=== PATIENT | male | born 1975 | race Caucasian/White ===

== ENCOUNTER 2020-06-14 10:15 | Emergency (ER) | payer BC, OTHER ==
[~2020-06-14] VITALS: Ht 177 cm; Wt 79.0 kg
[2020-06-14] MEDS ORDERED: ATOR80TA76 PO (10:42)
[2020-06-14] MEDS ORDERED: NS IV 1000 ML 1,000 ML IV STA (10:43)
[2020-06-14 10:50] LABS: BASOPHILS # (AUTO) 0.1 10^3/uL (0.0-0.1); BASOPHILS % (AUTO) 1 % (0-10); EOSINOPHILS # (AUTO) 0.5 10^3/uL (0.0-0.3); EOSINOPHILS % (AUTO) 5 % (0-10); HEMATOCRIT 52 % (40-54); HEMOGLOBIN 16.8 g/dL (13.3-17.7); LYMPHOCYTES # (AUTO) 1.9 10^3/uL (1.0-4.0); LYMPHOCYTES % (AUTO) 22 % (12-44); MEAN CORPUSCULAR HEMOGLOBIN 29 pg (25-34); MEAN CORPUSCULAR HGB CONC 33 g/dL (32-36); MEAN CORPUSCULAR VOLUME 90 fL (80-99); MEAN PLATELET VOLUME 10.7 fL (9.0-12.2); MONOCYTES # (AUTO) 0.4 10^3/uL (0.0-1.0); MONOCYTES % (AUTO) 5 % (0-12); NEUTROPHILS % (AUTO) 68 % (42-75); PLATELET COUNT 254 10^3/uL (130-400); WHITE BLOOD COUNT 8.8 10^3/uL (4.3-11.0)
--- NOTE | 2020-06-14 10:51 | ED Neurological Problem ---
General Chief Complaint: Neuro-Stroke Like Symptoms Stated Complaint: RIVERA,R ARM NUMBNESS, Nursing Triage Note: PT STATES HEADACHE, VISION CHANGES, TIMES HE DIDN'T KNOW WHERE HE WAS, AND STUTTERING FOR A MONTH. THIS MORNING HE HAD RT ARM TINGLING WHILE HE WAS DRIVING. Nursing Sepsis Screen: No Definite Risk Source: patient Exam Limitations: no limitations History of Present Illness Date Seen by Provider: Jun 14, 2020 Time Seen by Provider: 10:33 Initial Comments Here with report of right-sided headache as well's vision changes with some spe ech stuttering at times and tingling of the distal right arm. Onset at 8 AM. Overall this is resolving now but still has some residual headache. States that he has had headache intermittently over the last month which is new, and these symptoms are progressing in frequency. This is associated with the vision changes including tunnel vision. Also associated with the speech problems to varying extent. Has not had this previously. Does have history of of heart attack with stent placement. Does smoke. Does have strong family history of heart disease. Previously has had occasional headache but nothing to this extent. Denies weakness or balance problems. Timing/Duration: 1-3 hours, decreasing Severity: moderate Associated Symptoms: No confusion, No fever/chills, No nausea/vomiting; paresthesia; No trouble walking; vision changes; No weakness Allergies and Home Medications Allergies Coded Allergies: No Known Drug Allergies (Unverified , 06/14/20) Home Medications Atorvastatin Calcium 80 Mg Tablet, 80 MG PO DAILY, (Reported) Patient Home Medication List Home Medication List Reviewed: Yes Review of Systems Review of Systems Constitutional: see HPI Eyes: See HPI; Denies Pain, Denies Photophobia Ears, Nose, Mouth, Throat: no symptoms reported Respiratory: cough (Occasional in the morning but unchanged and reported a smoker's cough); No short of breath Cardiovascular: No chest pain, No edema Gastrointestinal: No abdominal pain, No nausea, No vomiting Genitourinary: no symptoms reported Musculoskeletal: No back pain, No joint pain Skin: change in color (Reports right hand pale) Psychiatric/Neurological: See HPI Endocrine: No Symptoms Reported Hematologic/Lymphatic: No Symptoms Reported All Other Systems Reviewed Negative Unless Noted: Yes Past Slxbtgn-Oamhih-Ucfnkw Hx Past Med/Social Hx: Reviewed Nursing Past Med/Soc Hx Patient Social History Alcohol Use: Occasionally Uses Alcohol Beverage of Choice: Beer Recreational Drug Use: No Smoking Status: Current Everyday Smoker Type Used: Cigarettes Recent Foreign Travel: No Contact w/Someone Who Travel: No Recent Infectious Disease Expo: No Recent Hopitalizations: No Seasonal Allergies Seasonal Allergies: Yes Past Medical History Surgeries: Yes Cardiac Respiratory: No Cardiac: Yes (1 STENTS) Coronary Artery Disease, Heart Attack, High Cholesterol Neurological: No Genitourinary: No Gastrointestinal: No Musculoskeletal: No Endocrine: No HEENT: No Cancer: No Psychosocial: No Integumentary: No Family Medical History Reviewed Nursing Family Hx Physical Exam Vital Signs Vital Signs - First Documented 06/14/20 10:25 Temp 35.6 Pulse 70 Resp 18 B/P (MAP) 154/93 (113) Pulse Ox 97 O2 Delivery Room Air Capillary Refill : Less Than 3 Seconds Height, Weight, BMI Height: '" Weight: lbs. oz. kg; 25.00 BMI Method: General Appearance: WD/WN, no apparent distress HEENT: PERRL/EOMI, pharynx normal Neck: full range of motion, supple Respiratory: lungs clear, normal breath sounds Cardiovascular: regular rate, rhythm, no murmur Peripheral Pulses: 2+ Dorsalis Pedis (R), 2+ Left Dors-Pedis (L), 2+ Radial Pulses (R), 2+ Radial Pulses (L) Gastrointestinal: non tender, soft Back: normal inspection, no CVA tenderness, no vertebral tenderness Extremities: non-tender, normal inspection Neurologic/Psychiatric: alert, oriented x 3 Crainal Nerves: normal hearing, normal speech, PERRL Coordination/Gait: normal finger to nose, normal gait Motor/Sensory: no motor deficit, no pronator drift, sensory deficit (right hand numbness) Skin: warm/dry, pallor (mild right hand) Stroke NIH Stroke Scale Assessment Level of Consciousness: 0=Alert (0), Level of Consciousness-Questions: 0=Answers both month/age (0), LOC Commands: 0=Performs both tasks (0), Visual Lara: 0=No visual loss (0), Facial Movement (Facial Paresis): 0=Normal symmetrical mnt (0), Motor Function-Arms Right: 0=No drift (0), Motor Function-Arms Left: 0=No drift (0), Motor Function-Legs Left: 0=No drift (0), Limb Ataxia: 0=Absent (0), Sensory: 0=Normal:no loss (0), Best Language: 0=No aphasia (0), Dysarthria: 0=Normal (0), Extinction & Inattention: 0=No abnormality (0), Total: Progress/Results/Core Measures Results/Orders Lab Results Laboratory Tests Test 06/14/20 10:30 06/14/20 10:31 06/14/20 10:48 Range/Units White Blood Count 8.8 4.3-11.0 10^3/uL Red Blood Count 5.77 H 4.30-5.52 10^6/uL Hemoglobin 16.8 13.3-17.7 g/dL Hematocrit 52 40-54 % Mean Corpuscular Volume 90 80-99 fL Mean Corpuscular Hemoglobin 29 25-34 pg Mean Corpuscular Hemoglobin Concent 33 32-36 g/dL Red Cell Distribution Width 12.9 10.0-14.5 % Platelet Count 254 130-400 10^3/uL Mean Platelet Volume 10.7 9.0-12.2 fL Immature Granulocyte % (Auto) 0 % Neutrophils (%) (Auto) 68 42-75 % Lymphocytes (%) (Auto) 22 12-44 % Monocytes (%) (Auto) 5 0-12 % Eosinophils (%) (Auto) 5 0-10 % Basophils (%) (Auto) 1 0-10 % Neutrophils # (Auto) 6.0 1.8-7.8 10^3/uL Lymphocytes # (Auto) 1.9 1.0-4.0 10^3/uL Monocytes # (Auto) 0.4 0.0-1.0 10^3/uL Eosinophils # (Auto) 0.5 H 0.0-0.3 10^3/uL Basophils # (Auto) 0.1 0.0-0.1 10^3/uL Immature Granulocyte # (Auto) 0.0 0.0-0.1 10^3/uL Prothrombin Time 14.2 12.2-14.7 SEC INR Comment 1.1 0.8-1.4 Activated Partial Thromboplast Time 32 24-35 SEC D-Dimer <= 0.27 0.00-0.49 UG/ML Sodium Level 141 135-145 MMOL/L Potassium Level 4.2 3.6-5.0 MMOL/L Chloride Level 104 98-107 MMOL/L Carbon Dioxide Level 24 21-32 MMOL/L Anion Gap 13 5-14 MMOL/L Blood Urea Nitrogen 12 7-18 MG/DL Creatinine 0.89 0.60-1.30 MG/DL Estimat Glomerular Filtration Rate > 60 BUN/Creatinine Ratio 13 Glucose Level 79 70-105 MG/DL Calcium Level 9.6 8.5-10.1 MG/DL Corrected Calcium 8.5-10.1 MG/DL Total Bilirubin 0.5 0.1-1.0 MG/DL Aspartate Amino Transf (AST/SGOT) 30 5-34 U/L Alanine Aminotransferase (ALT/SGPT) 29 0-55 U/L Alkaline Phosphatase 35 L 40-136 U/L Troponin I < 0.028 <0.028 NG/ML Total Protein 8.3 H 6.4-8.2 GM/DL Albumin 4.8 H 3.2-4.5 GM/DL Glucometer 76 70-110 MG/DL Urine Color YELLOW Urine Clarity CLEAR Urine pH 8.0 5-9 Urine Specific [place] 1.020 1.016-1.022 Urine Protein NEGATIVE NEGATIVE Urine Glucose (UA) NEGATIVE NEGATIVE Urine Ketones NEGATIVE NEGATIVE Urine Nitrite NEGATIVE NEGATIVE Urine Bilirubin NEGATIVE NEGATIVE Urine Urobilinogen 1.0 < = 1.0 MG/DL Urine Leukocyte Esterase NEGATIVE NEGATIVE Urine RBC (Auto) NEGATIVE NEGATIVE Urine RBC RARE /HPF Urine WBC RARE /HPF Urine Squamous Epithelial Cells NONE /HPF Urine Crystals NONE /LPF Urine Bacteria TRACE /HPF Urine Casts NONE /LPF Urine Mucus SMALL H /LPF Urine Culture Indicated NO My Orders Orders - STEWART LINDER MD Cbc With Automated Diff (06/14/20 10:43) Protime With Inr (06/14/20 10:43) Partial Thromboplastin Time (06/14/20 10:43) Comprehensive Metabolic Panel (06/14/20 10:43) Fibrin Degradation Products (06/14/20 10:43) Troponin I (06/14/20 10:43) Ua Culture If Indicated (06/14/20 10:43) Chest 1 View, Ap/Pa Only (06/14/20 10:43) Ekg Tracing (06/14/20 10:43) Nothing By Mouth (06/14/20 Lunch) Accucheck Stat ONCE (06/14/20 10:43) Ed Iv/Invasive Line Start (06/14/20 10:43) Ed Iv/Invasive Line Start (06/14/20 10:43) Vital Signs Stroke Patient Q15M (06/14/20 10:43) Ct Head Wo-R/O Stroke (06/14/20 10:43) O2 (06/14/20 10:43) Intake & Output 06,14,22 (06/14/20 10:43) Monitor-Rhythm Ecg Trace Only (06/14/20 10:43) Dysphagia Screening Tool (06/14/20 10:43) Lipid Panel (06/15/20 06:00) Ct Angio Head/Neck (06/14/20 10:43) Ns Iv 1000 Ml (Sodium Chloride 0.9%) (06/14/20 10:43) Iohexol Injection (Omnipaque 350 Mg/Ml 1 (06/14/20 11:00) Received Contrast (Hold Metformin- Contr (06/14/20 11:00) Ns (Ivpb) (Sodium Chloride 0.9% Ivpb Bag (06/14/20 11:00) Medications Given in ED Current Medications Medications Dose Ordered Sig/Denice Route Start Time Stop Time Status Last Admin Dose Admin Iohexol 75 ml ONCE ONCE IV 06/14/20 11:00 06/14/20 11:03 DC 06/14/20 11:11 75 ML Sodium Chloride 100 ml ONCE ONCE IV 06/14/20 11:00 06/14/20 11:03 DC 06/14/20 11:11 100 ML Vital Signs/I&O 06/14/20 10:25 Temp 35.6 Pulse 70 Resp 18 B/P (MAP) 154/93 (113) Pulse Ox 97 O2 Delivery Room Air Blood Pressure Mean: 113 Progress Progress Note : Progress Note Seen and evaluated. Initial stroke scale was 0. We have initiated stroke order set based on presentation of symptoms. This will include both CT as well as CT angio of head and neck due to history of vasculopath and previous stent placement. Patient counseled on the need for quitting smoking immediately. Monitor patient. 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 CT films electronically sent to [facility] and I have made contact with [facility] to page neurosurgeon on to discuss findings and and plan going forward. All of this was discussed with the patient. Monitor patient. 1235: I did discuss the case with Dr. Nima, neurosurgery on-call at [facility]. He believes this is likely more incidental as the aneurysm is smooth with and appears to point f orward and not rearward which would make it unlikely that its contacting the optic nerve. Also not contacting the dura which would less likely cause headaches. HAKEEM distribution is typically more for her legs and arms. Overall safe for outpatient follow-up which the patient would prefer as well. Dr. Herring's office will make contact with the patient for appointment either virt ually or in person on Saturday of next week. I did discuss this with the patient he was very happy with that and, again, that was his preference anyway. He is overall feeling better currently. Discharged home with return precautions. Patient verbalized understanding of instructions and agreement with plan. Initial ECG Impression Date: Jun 14, 2020 Initial ECG Impression Time: 10:26 Initial ECG Rate: 80 Initial ECG Rhythm: Normal Sinus Initial ECG Comparisson: No Previous ECG Available Comment Sinus rhythm with normal but rightward axis. No evidence of ST elevation AR. No previous available for comparison. Interpreted by me. Diagnostic Imaging Diagonstic Imaging: Xray Plain Films/CT/US/NM/MRI: chest Comments [facility] [place] [place] NAME: BAHMAN OCHOA [facility] REC#: [id number] PT STATUS: REG ER : 1975 PHYSICIAN: STEWART LINDER MD ADMIT DATE: 06/14/20/ER Signed Date of Exam:06/14/20 CHEST 1 VIEW, AP/PA ONLY Indication: CVA Portable chest 11:18 AM Heart size and pulmonary vascularity are normal. Lungs are clear. There are no effusions or pneumothoraces. IMPRESSION: Negative chest Dictated by: Dictated on workstation # [id number] Dict: 06/14/20 1124 Trans: 06/14/20 112 [id number] Interpreted by: STEWART MARTINEZ MD Electronically signed by: STEWART MARTINEZ MD 06/14/20 1125 Diagonstic Imaging: CT Plain Films/CT/US/NM/MRI: head Comments [facility] [place], [place] NAME: BAHMAN OCHOA [facility] REC#: [id number] PT STATUS: REG ER : 1975 PHYSICIAN: STEWART LINDER MD ADMIT DATE: 06/14/20/ER Draft Date of Exam:06/14/20 CT HEAD WO-R/O STROKE PROCEDURE: CT head wo r/o stroke. TECHNIQUE: Multiple contiguous axial images were obtained through the brain without the use of intravenous contrast. Auto Exposure Controls were utilized during the CT exam to meet ALARA standards for radiation dose reduction. INDICATION: Head pain visual changes stuttering right arm tingling. Exam compared with study 11/14/2012. Having become apparent from prior study there is a midline somewhat triangular configured hyperdense lesion measuring 11 mm AP by 8.5 mm transverse similar in density to the adjacent unopacified vascular structures and A-comm aneurysm could not be excluded. This could conceivably reflect a mass such as meningioma however that felt less likely. Correlative CT angiogram head and neck recommended as further workup. There was however no findings suggestive of intracranial involvement by hemorrhage at this study. No focal or generalized cerebral edema. No findings of an elevation to the intracranial pressures. There is some ectasia and premature atherosclerotic vascular calcifications involving the cavernous segments of the intracranial ICAs. The basilar cisterns are patent. There is no sulcal effacement. There is some chronic incidental mineralization at the basal ganglia but again no findings felt suggestive of CT evidence for acute or subacute blood. Post surgical changes to the right parietal calvarium and focal cortical encephalomalacia in the posterior right frontal lobe is a chronic finding. IMPRESSION: Appearance of the midline hyperdense lesion dimensions above suspicious for a-common aneurysm confirmation with CT angiogram neck and head recommended. No findings however of intracerebral hemorrhage or focal edema. Chronic postsurgical changes to the calvarium and focal posterior frontal lobe cortical encephalomalacia stable. These results discussed by phone with the Emergency Room physician. Dictated on workstation # [id number] Dict: 06/14/20 1115 Trans: 06/14/20 1139 DENIZ [id number] Interpreted by: DEONTE HUERTAS Electronically signed by: Danae Imaging: CT Plain Films/CT/US/NM/MRI: head, other Comments [facility] [place] NAME: BAHMAN OCHOA [facility] REC#: [id number] PT STATUS: REG ER : 1975 PHYSICIAN: STEWART LINDER MD ADMIT DATE: 06/14/20/ER Draft Date of Exam:06/14/20 CT ANGIO HEAD/NECK CLINICAL INDICATION: Patient with headache, vision changes, confusion, and stuttering x 1 month. This morning, the patient had right arm tingling while he was driving. EXAMS: 1. Head CT with IV contrast. Auto Exposure Controls were utilized during the CT exam to meet ALARA standards for radiation dose reduction. 2. CT angiogram of the head and neck performed with 100 cc of Omnipaque 350 IV contrast. Sagittal and coronal MIP reformations were created for better visualization of vascular anatomy. COMPARISON: CT scan of the brain performed without IV contrast dated 06/14/2020. FINDINGS: HEAD CT: There is a saccular aneurysm seen in the region of the anterior communicating artery which is best seen on the CT angiogram. There is no interval evidence of acute cerebral infarct, intracranial hemorrhage, or gross mass effect. Stable small amount of encephalomalacia involving the lateral aspect of the right parietal lobe with right skull craniotomy changes. The brain parenchymal volume appears appropriate for patient's age. The remainder of the brain parenchyma is unremarkable with normal wright-white matter distinction. There is no significant midline shift or herniation. There is no evidence of hydrocephalus. The basal cisterns are unremarkable. The skull, extracranial soft tissue, and orbits are unremarkable. There is a small mucus retention cyst involving the right maxillary sinus. Temporal bones show no significant abnormality. 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 The bilateral subclavian arteries, brachiocephalic artery, bilateral common carotid arteries, bilateral cervical ICA, and bilateral ECA are patent. The bilateral cervical vertebral arteries are patent. A dominant right vertebral artery is noted. The petrous and cavernous portions of the bilateral ICA are patent. An absent left A1 HAKEEM is seen with a prominent anterior communicating artery supplying the bilateral A2 ACAs and their distal branches which are patent. The right A1 HAKEEM is prominent. There is a saccular aneurysm arising from the right A1/A2 anterior communicating artery junction region and is directed superiorly and medially toward the midline. This aneurysm measures 12 mm x 10 mm in AP by transverse dimensions and 8 mm in craniocaudal dimension. The neck of the aneurysm is roughly 4.7 mm. The details of the optic nerves are not well delineated on this exam to evaluate for any significant encroachment. The bilateral MCAs and their distal branches and bilateral retail bakery manager and their distal branches are patent. The intradural vertebral arteries, basilar artery, and superior cerebellar arteries are patent. There is prominence of the bilateral palatine tonsils which may be reactive. Otherwise, the neck soft tissue structures show no significant abnormality. The visualized upper lung lara are clear. 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 IMPRESSION: 1. 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 The aneurysm is directed medially toward the midline and superiorly. Due to this being a CT scan, it is difficult to determine if there is any significant encroachment upon the optic nerves. If there is clinical concern for encroachment upon the optic nerves, an MRI of the orbits would better evaluate. 2. The remainder of the [place] and neck vascular structures is patent. 3. Stable CT scan of the brain with no other concern for acute intracranial process. Stable postop changes with right craniotomy and encephalomalacia in the lateral aspect of the right parietal lobe. 4. The results of this report were discussed with Low Mayfield APRN, via the telephone on 06/14/2020 at 1142 hours. Dictated on workstation # [id number] Dict: 06/14/20 1126 Trans: 06/14/20 1149 [id number] Interpreted by: GONSALO COOMBS MD Electronically signed by: Departure Impression Primary Impression: Headache Qualified Codes: R51 - Headache Additional Impression: Anterior cerebral artery aneurysm Disposition: 01 HOME, SELF-CARE Condition: Stable Departure-Patient Inst. Decision time for Depature: 12:53 Referrals: NO,LOCAL PHYSICIAN (PCP) Primary Care Physician BARBARA BURNHAM (Family) Primary Care Physician Patient Instructions: Brain Aneurysm (DC), Headache, Adult (DC) Add. Discharge Instructions: All discharge instructions reviewed with patient and/or family. Voiced understanding. You may take Tylenol 1000 mg every 6-8 hours as needed for headache. Drink plenty of fluids, eat a normal diet and get plenty of rest. You should follow- up with the neurosurgeon, Dr. Herring, from [facility] early next week either in person or virtually. His office will call you for appointment for next Saturday. Return for severe headache, weakness, vision or balance problems, vomiting or other concerns as needed. Continue taking home meds as previously prescribed. STEWART LINDER MD Jun 14, 2020 10:51
[2020-06-14 10:55] LABS: ALBUMIN 4.8 GM/DL (3.2-4.5); CHLORIDE 104 MMOL/L (98-107); POTASSIUM 4.2 MMOL/L (3.6-5.0); SODIUM 141 MMOL/L (135-145)
[2020-06-14 10:56] LABS: CALCIUM 9.6 MG/DL (8.5-10.1)
[2020-06-14 10:57] LABS: GLUCOSE 79 MG/DL (70-105); TOTAL PROTEIN 8.3 GM/DL (6.4-8.2)
[2020-06-14 10:57] LABS: BILIRUBIN,URINE NEGATIVE (NEGATIVE); CLARITY,URINE CLEAR; COLOR,URINE YELLOW; GLUCOSE, URINE (UA) NEGATIVE (NEGATIVE); KETONES,URINE NEGATIVE (NEGATIVE); LEUKOCYTE ESTERASE ,URINE NEGATIVE (NEGATIVE); NITRITE,URINE NEGATIVE (NEGATIVE); PROTEIN,URINE NEGATIVE (NEGATIVE)
[2020-06-14 10:58] LABS: CARBON DIOXIDE 24 MMOL/L (21-32)
[2020-06-14 10:59] LABS: BILIRUBIN,TOTAL 0.5 MG/DL (0.1-1.0)
[2020-06-14] MEDS ORDERED: HOLD METFORMIN - RECEIVED CONTRAST 20 ML VIAL IV SCH (11:00)
[2020-06-14] MEDS ORDERED: NS 100 ML (IVPB) BAG IV ONE (11:00)
[2020-06-14] MEDS ORDERED: IOHEXOL 350 MG/ML 100 ML (OMNIPAQUE 350) VIAL IV ONE (11:00)
[2020-06-14 11:01] LABS: ALKALINE PHOSPHATASE 35 U/L (40-136); CREATININE SERUM 0.89 MG/DL (0.60-1.30); GFR ESTIMATED > 60
[2020-06-14 11:02] LABS: BUN/CREATININE RATIO 13
[2020-06-14 11:04] LABS: ALANINE AMINOTRANSFERASE 29 U/L (0-55)
[2020-06-14 11:24] LABS: FIBRIN DEGRADATION PRODUCTS <= 0.27 UG/ML (0.00-0.49); INR 1.1 (0.8-1.4); PARTIAL THROMBOPLASTIN TIME 32 SEC (24-35); PROTHROMBIN TIME PATIENT 14.2 SEC (12.2-14.7)
--- NOTE | 2020-06-14 11:26 | Diagnostic Imaging Report ---
Indication: CVA Portable chest 11:18 AM Heart size and pulmonary vascularity are normal. Lungs are clear. There are no effusions or pneumothoraces. IMPRESSION: Negative chest Dictated by: Dictated on workstation # [id number]
[2020-06-14 11:28] LABS: BACTERIA,URINE TRACE /HPF; RBC,URINE RARE /HPF; WBC,URINE RARE /HPF
--- NOTE | 2020-06-14 11:40 | Diagnostic Imaging Report ---
PROCEDURE: CT head wo r/o stroke. TECHNIQUE: Multiple contiguous axial images were obtained through the brain without the use of intravenous contrast. Auto Exposure Controls were utilized during the CT exam to meet ALARA standards for radiation dose reduction. INDICATION: Head pain visual changes stuttering right arm tingling. Exam compared with study 11/14/2012. Having become apparent from prior study there is a midline somewhat triangular configured hyperdense lesion measuring 11 mm AP by 8.5 mm transverse similar in density to the adjacent unopacified vascular structures and A-comm aneurysm could not be excluded. This could conceivably reflect a mass such as meningioma however that felt less likely. Correlative CT angiogram head and neck recommended as further workup. There was however no findings suggestive of intracranial involvement by hemorrhage at this study. No focal or generalized cerebral edema. No findings of an elevation to the intracranial pressures. There is some ectasia and premature atherosclerotic vascular calcifications involving the cavernous segments of the intracranial ICAs. The basilar cisterns are patent. There is no sulcal effacement. There is some chronic incidental mineralization at the basal ganglia but again no findings felt suggestive of CT evidence for acute or subacute blood. Post surgical changes to the right parietal calvarium and focal cortical encephalomalacia in the posterior right frontal lobe is a chronic finding. IMPRESSION: Appearance of the midline hyperdense lesion dimensions above suspicious for a-common aneurysm confirmation with CT angiogram neck and head recommended. No findings however of intracerebral hemorrhage or focal edema. Chronic postsurgical changes to the calvarium and focal posterior frontal lobe cortical encephalomalacia stable. These results discussed by phone with the Emergency Room physician. Dictated by: Dictated on workstation # [id number]
--- NOTE | 2020-06-14 11:49 | Diagnostic Imaging Report ---
CLINICAL INDICATION: Patient with headache, vision changes, confusion, and stuttering x 1 month. This morning, the patient had right arm tingling while he was driving. EXAMS: 1. Head CT with IV contrast. Auto Exposure Controls were utilized during the CT exam to meet ALARA standards for radiation dose reduction. 2. CT angiogram of the head and neck performed with 100 cc of Omnipaque 350 IV contrast. Sagittal and coronal MIP reformations were created for better visualization of vascular anatomy. COMPARISON: CT scan of the brain performed without IV contrast dated 06/14/2020. FINDINGS: HEAD CT: There is a saccular aneurysm seen in the region of the anterior communicating artery which is best seen on the CT angiogram. There is no interval evidence of acute cerebral infarct, intracranial hemorrhage, or gross mass effect. Stable small amount of encephalomalacia involving the lateral aspect of the right parietal lobe with right skull craniotomy changes. The brain parenchymal volume appears appropriate for patient's age. The remainder of the brain parenchyma is unremarkable with normal wright-white matter distinction. There is no significant midline shift or herniation. There is no evidence of hydrocephalus. The basal cisterns are unremarkable. The skull, extracranial soft tissue, and orbits are unremarkable. There is a small mucus retention cyst involving the right maxillary sinus. Temporal bones show no significant abnormality. 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 The bilateral subclavian arteries, brachiocephalic artery, bilateral common carotid arteries, bilateral cervical ICA, and bilateral ECA are patent. The bilateral cervical vertebral arteries are patent. A dominant right vertebral artery is noted. The petrous and cavernous portions of the bilateral ICA are patent. An absent left A1 HAKEEM is seen with a prominent anterior communicating artery supplying the bilateral A2 ACAs and their distal branches which are patent. The right A1 HAKEEM is prominent. There is a saccular aneurysm arising from the right A1/A2 anterior communicating artery junction region and is directed superiorly and medially toward the midline. This aneurysm measures 12 mm x 10 mm in AP by transverse dimensions and 8 mm in craniocaudal dimension. The neck of the aneurysm is roughly 4.7 mm. The details of the optic nerves are not well delineated on this exam to evaluate for any significant encroachment. The bilateral MCAs and their distal branches and bilateral creative writing teacher and their distal branches are patent. The intradural vertebral arteries, basilar artery, and superior cerebellar arteries are patent. There is prominence of the bilateral palatine tonsils which may be reactive. Otherwise, the neck soft tissue structures show no significant abnormality. The visualized upper lung west are clear. 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 IMPRESSION: 1. 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 The aneurysm is directed medially toward the midline and superiorly. Due to this being a CT scan, it is difficult to determine if there is any significant encroachment upon the optic nerves. If there is clinical concern for encroachment upon the optic nerves, an MRI of the orbits would better evaluate. 2. The remainder of the [place] and neck vascular structures is patent. 3. Stable CT scan of the brain with no other concern for acute intracranial process. Stable postop changes with right craniotomy and encephalomalacia in the lateral aspect of the right parietal lobe. 4. The results of this report were discussed with Low Mayfield APRN, via the telephone on 06/14/2020 at 1142 hours. Dictated by: Dictated on workstation # [id number]
[2020-06-14 13:14] VITALS: BP 129/81
== END 2020-06-14 13:14 | disposition home or self-care (01) ==
LOC: EDUNIT# 10:15 → ER 10:18
DX: R51.9 Headache, unspecified (principal); I67.1 Cerebral aneurysm, nonruptured; I25.2 Old myocardial infarction; E78.00 Pure hypercholesterolemia, unspecified; F17.210 Nicotine dependence, cigarettes, uncomplicated; Z95.5 Presence of coronary angioplasty implant and graft
CPT/HCPCS: 36415; 70450; 70496; 70498; 71045; 80053; 81000; 82962; 84484; 85025; 85379; 85610; 85730; 93005; 93041